=== PATIENT | male | born 1975 | race Caucasian/White ===

== ENCOUNTER 2016-09-05 12:11 | Inpatient (IN) | payer BC, OTHER ==
[~2016-09-05] VITALS: Ht 177.8 cm; Wt 81.6 kg
--- NOTE | 2016-09-05 15:25 | NUR ---
PRE ASSESSMENT: PT IS IN INTAKE A/O X4. HIS GAIT IS STEADY.BP 139/79 P 77 97.0 98% 18 . HE REPORTS DRINKING 750 ML. OF VODKA DAILY IN THIS PATTERN FOR 2 YEARS. HE STATES HE CANNOT STOP DRINKING ON HIS OWN AND HAS A HISTORY OF W/D SEIZURES. LAST SZ 2 WEEKS AGO. HE STATES HE HAS A HX OF HTN AND ANXIETY AND DEPRESSION. HE ALSO REPORTS ABUSING ADDERALL. HE TOOK ABOUT 40 MG DAILY UNTIL 10 DAYS AGO. HE STATES HAS NOT HAD ADDERALL IN 10 DAYS. WILL ASSESS PT ON UNIT.
[2016-09-05] MEDS ORDERED: MAG HYDROX/AL HYDROX/SIMETH 30 ML LIQUID UDC PO PRN (15:30)
[2016-09-05] MEDS ORDERED: diphenhydrAMINE 50 MG CAPSULE PO PRN (15:30)
[2016-09-05] MEDS ORDERED: MAGNESIUM HYDROXIDE 30 ML LIQUID UDC PO PRN (15:30)
[2016-09-05] MEDS ORDERED: ONDANSETRON 4 MG/2 ML VIAL IM PRN (15:30)
[2016-09-05] MEDS ORDERED: MIRALAX 17 GM POWD.PACK PO PRN (15:30)
[2016-09-05] MEDS ORDERED: ONDANSETRON ODT 4 MG TAB.RAPDIS SL PRN (15:30)
[2016-09-05] MEDS ORDERED: LORAZEPAM 2 MG/1 ML VIAL IM PRN (15:30)
[2016-09-05] MEDS ORDERED: LORAZEPAM 1 MG TABLET PO PRN ×2 (15:30)
[2016-09-05] MEDS ORDERED: LOPERAMIDE HCL 2 MG CAPSULE PO PRN ×2 (15:30)
[2016-09-05 15:40] VITALS: BP 139/79
[2016-09-05] MEDS ORDERED: TRAZ-144 PO (15:49)
[2016-09-05] MEDS ORDERED: FOLI1TAB16 PO (15:49)
[2016-09-05] MEDS ORDERED: METO25TA6 PO (15:50)
[2016-09-05] MEDS ORDERED: [UNRECOGNIZED DRUG - CODE] TP (15:51)
[2016-09-05] MEDS ORDERED: ESCI20TA PO (16:15)
[2016-09-05 16:20] LABS: *AMPHETAMINE, URINE NEGATIVE (NEGATIVE); *BARBITURATE, URINE NEGATIVE (NEGATIVE); *CANNABINOID, URINE NEGATIVE (NEGATIVE); *COCCAINE, URINE NEGATIVE (NEGATIVE); *OPIATE, URINE NEGATIVE (NEGATIVE); *PHENCYCLIDINE SCREEN,URINE NEGATIVE (NEGATIVE)
[2016-09-05] MEDS ORDERED: LORAZEPAM 1 MG TABLET PO ONE (16:45)
[2016-09-05] MEDS ORDERED: Medication Not On Formulary EA (Escitalopram Oxalate (Lexapro) 1 TAB) PO SCH (17:00)
[2016-09-05] MEDS ORDERED: THIAMINE HCL 200 MG/2 ML VIAL IM ONE (17:00)
[2016-09-05] MEDS: ESCITALOPRAM OXALATE 10 MG TABLET PO SCH (17:15)
--- NOTE | 2016-09-05 17:26 | NUR ---
ADMISSION: A 41 Y O MALE ADMITTED FOR MEDICALLY SUPERVISED DETOX FROM ETOH. HE STATES HE DRINKS 750 ML OF VODKA DAILY. HE REPORTS HE HAS BEEN IS THIS PATTERN DAILY FOR 2 YEARS WITH A 10 YEAR HISTORY.HE STATES HE NEEDS HELP AND CANNOT STOP DRINKING ON HIS OWN. LAST DRANK THIS AM 2 LARGE GLASSES. HE ALSO REPORTS ABUSING ADDERALL WHICH WAS PRESCRIBED BUT HAS NOT TAKEN IT SINCE August. HE WAS TAKING ABOUT 40 MG PO DAILY. HE IS A/O X 4. GAIT STEADY. SKIN WARM AND DRY. HE PRESENTS WITH SEVERE ANXIETY AND IS FIDGETY. TREMORS NOTED TO BILATERAL HANDS. HE DENIES PAIN. HE REPORTS MEDICAL HX OF HTN AND SEIZURES X 2 FROM ETOH W/D. LAST SEIZURE 2 WEEKS AGO.HE ALSO REPORTS ANXIETY AND DEPRESSION HX. HE STATES HE TAKES METOPROLOL AND LEXAPRO. HE ALSO STATES HE TAKES TRAZODONE FOR SLEEP. HE DENIES PCP. HE STATES HE LIVES WITH HIS PARTNER WHO IS ALSO DEPENDENT ON ETOH AND STATES THE RELATIONSHIP IS TOXIC. CIWA 10 . ONE TIME ATIVAN 2 MG PO GIVEN TO MANAGE S/S OF W/D PER MD. THIAMINE INJECTION ADMINISTERED. HE DENIES PCP. ORIENTED PT TO STAFF AND UNIT. ENCOURAGED INCREASED FLUIDS TO ASSIST IN FACILITATING DETOX PROCESS. WILL CONTINUE TO PROVIDE SAFE AND SUPPORTIVE ENVIRONMENT. Addendum: 09/05/16 at 1748 by WALESKA HAWK RN SEIZURE PRECAUTIONS NOTED. SIDE RAILS PADDED.
[2016-09-05 17:27] LABS: BASOPHILS # (AUTO) 0.1 K/uL (0.0-8.0); EOSINOPHILS # (AUTO) 0.2 K/uL (0.0-0.7); EOSINOPHILS % (AUTO) 2.9 % (0.0-7.0); HEMATOCRIT 39.5 % (40-50); LYMPHOCYTES # (AUTO) 1.7 K/UL (0.8-4.8); LYMPHOCYTES % (AUTO) 28.2 % (20.5-51.5); MEAN CORPUSCULAR HEMOGLOBIN 32.7 UUG (27.0-31.0); MEAN CORPUSCULAR HGB CONC 33 g/dL (32.0-37.0); MEAN CORPUSCULAR VOLUME 99.5 FL (82.0-92.0); MONOCYTES # (AUTO) 0.4 K/UL (0.1-1.30); MONOCYTES % (AUTO) 6.8 % (0.0-11.0); NEUTROPHILS # (AUTO) 3.8 K/UL (1.8-8.9); NEUTROPHILS % (AUTO) 60.1 % (38.5-71.5); PLATELET COUNT (AUTO) 309 K/UL (150-450); RED BLOOD CELL COUNT(AUTO) 3.97 MIL/UL (4.7-6.1); WHITE BLOOD COUNT (AUTO) 6.2 K/UL (4.0-11.2)
[2016-09-05 17:43] LABS: ALANINE AMINOTRANSFERASE 36 U/L (16-63); ALKALINE PHOSPHATASE 63 U/L (50-136); AMYLASE 29 U/L (25-115); ASPARTATE AMINOTRANSFERASE 20 U/L (15-37); BILIRUBIN,TOTAL 0.3 mg/dL (0.2-1.0); CARBON DIOXIDE 31 mmol/L (21-32); CHLORIDE 100 mmol/L (98-107); CREATININE 0.9 mg/dL (0.6-1.3); GLUCOSE 88 mg/dL (74-106); LIPASE 188 U/L (73-393); MAGNESIUM 1.7 mg/dL (1.8-2.4); POTASSIUM 3.6 mmol/L (3.5-5.1); TOTAL PROTEIN, SERUM 7.7 g/dL (6.4-8.2); UREA NITROGEN, BLOOD 11 mg/dL (7-18)
[2016-09-05 17:52] LABS: ETHANOL < 3 MG/DL (0-0)
[2016-09-05 17:54] LABS: THYROID STIMULATING HORMONE 5.689 mIU/mL (0.358-3.740)
--- NOTE | 2016-09-05 19:03 | NUR ---
PT LAYING IN BED WATCHING TV. HE STATES TH ATIVAN WAS EFFECTIVE. WILL PASS SHIFT REPORT TO [facility] NIGHT NURSE. Addendum: 09/05/16 at 1905 by WALESKA HAWK RN COURTNEY Prado.
[2016-09-05] MEDS ORDERED: MAGNESIUM OXIDE 400 MG TABLET PO ONE (19:45)
--- NOTE | 2016-09-05 19:45 | NUR ---
Start of Shift Note: Report received from day shift nurse. Pt is a 41 Y/O male admitted today for medically-supervised withdrawal from ETOH. Pt reported drinking 750ml vodka daily for two years. Pt is on a modified 4-day Ativan taper. Pt received with last CIWA=7, and PRN Ativan was given during day shift. Pt is a full code, reports NKDA/NKFA, and is on a regular diet. PMHx: HTN, SZ r/t ETOH withdrawal, anxiety, depression. Pt received in room and reports severe anxiety, diaphoresis, tactile disturbances, and noted with fine tremor. Bed is in low position and locked, side rails up x2, call light within reach. Will continue to monitor.
[2016-09-05 20:00] VITALS: BP 137/81
[2016-09-05] MEDS: TRAZODONE 50 MG TABLET PO SCH ×2 (20:01→21:55)
[2016-09-05] MEDS: GABAPENTIN 300 MG CAPSULE PO SCH (20:02)
[2016-09-05] MEDS: METOPROLOL TARTRATE 25 MG TABLET PO SCH (20:02)
[2016-09-05] MEDS ORDERED: LORAZEPAM 1 MG TABLET PO SCH (21:00)
[2016-09-06] VITALS: BP 94/56
--- NOTE | 2016-09-06 | NUR ---
CIWA Deferred: CIWA is deferred for sleep. V/S stable. All safety precautions are in place. Will continue to monitor. Addendum: 09/06/16 at 0009 by JOSH JACOB RN Amended: Links added.
[2016-09-06 04:00] VITALS: BP 93/58
--- NOTE | 2016-09-06 04:00 | NUR ---
CIWA Deferred: CIWA assessment is deferred for sleep. Vital signs stable. All safety precautions are in place. Will continue to monitor. Addendum: 09/06/16 at 0447 by JOSH JACOB RN Amended: Links added.
--- NOTE | 2016-09-06 06:45 | NUR ---
End of Shift Note: Pt is a 41 Y/O male admitted to [facility] on 09/05/16 for medically-supervised withdrawal from ETOH. Pt reported PMHx of HTN, SZ r/t ETOH withdrawal, anxiety, and depression. Pt is a full code. Pt reports NKDA/NKFA. Pt is on a regular diet. Pt reported drinking 750ml vodka daily for two years and was placed on a modified 4-day Ativan taper. Scheduled medication regime effectively managed s/s of withdrawal this shift, and no PRN medication were necessary. Last CIWA=10 at 20:00.V/S stable throughout shift, with tachycardia at 20:00. Total fluid intake this shift: 902 ml; output: urine x 1 and BM x 0 Pt is currently in bed and slept 8 hours this shift. All needs attended and met. Pt endorsed to day shift nurse.
--- NOTE | 2016-09-06 07:55 | NUR ---
START OF SHIFT Rcvd endorsement from ongoing nurse, client is a 47 y/o admitted for alcohol withdrawal, 4 day Ativan taper first dose today @ 0900, last CIWA 10 @ 1999 Ativan 2mg PO administered, client slept 8 hrs. Client is in bed, a/o x4. he presents with depressed mood, flat affect, he states "I don't feel good at all, my head feels really tight." Client noted with flushed face, tremors, skin warm/moist to touch, abdomen soft, nontender, quadrant x 4 active. Encourage client to increase fluid intake to facilitate detox and to attend group therapy for skills to maintain sobriety. History of withdrawal induced seizures. Client is on Seizure precautions. NKA, full code, regular diet. Call light within reach. Side rails x 2 up/padded. Will continue to monitor.
[2016-09-06] MEDS: GABAPENTIN 300 MG CAPSULE PO SCH (08:29)
[2016-09-06] MEDS: FOLIC ACID 1 MG TABLET PO SCH (08:29)
[2016-09-06] MEDS: LORAZEPAM 1 MG TABLET PO SCH ×3 (08:29→20:51)
[2016-09-06] MEDS: ESCITALOPRAM OXALATE 10 MG TABLET PO SCH (08:29)
[2016-09-06] MEDS: THIAMINE HCL 100 MG TABLET PO SCH (08:30)
[2016-09-06] MEDS: METOPROLOL TARTRATE 25 MG TABLET PO SCH ×2 (08:30→20:50)
[2016-09-06] MEDS: ACETAMINOPHEN 325 MG TABLET PO PRN (08:30)
--- NOTE | 2016-09-06 08:30 | NUR ---
TB test administered to L F/A. Client tolerated well.
--- NOTE | 2016-09-06 08:30 | NUR ---
PRN Tylenol 650mg Client reports headache 08/10, he states "It feels very tight around my head." Call light within reach. Will continue to monitor.
[2016-09-06] MEDS: MULTIVITAMINS,THERAPEUTIC TABLET PO SCH (08:31)
[2016-09-06 08:49] VITALS: BP 128/82
[2016-09-06] MEDS ORDERED: TUBERCULIN,PURIF.PROT.DERIV. 5 TU/0.1 ML TEST ID ONE (09:00)
--- NOTE | 2016-09-06 09:30 | NUR ---
Reassessment PRN Tylenol 650mg Client reports some relief from his headache 04/12, but tolerable. Encourage to increase fluid intake as tolerated. Call light within reach. Will continue to monitor.
--- NOTE | 2016-09-06 10:52 | NUR ---
Therapist prompted client about group times. Client stated he will attend all groups.
[2016-09-06 12:55] VITALS: BP 129/78
[2016-09-06] MEDS: GABAPENTIN 400 MG CAPSULE PO SCH ×2 (14:23→20:50)
[2016-09-06] MEDS: IBUPROFEN 400 MG TABLET PO PRN (15:19)
[2016-09-06 16:55] VITALS: BP 148/93
[2016-09-06] MEDS: DICYCLOMINE HCL 20 MG TABLET PO PRN (17:19)
[2016-09-06] MEDS: BACLOFEN 20 MG TABLET PO PRN (17:19)
[2016-09-06] MEDS: CLONIDINE HCL 0.1 MG TABLET PO PRN (17:19)
--- NOTE | 2016-09-06 17:19 | NUR ---
PRN Clonidine 0.1mg, Baclofen 20mg, Bentyl 20mg, Maalox 30mL Client reports irritability, cold/chills, anxiety, lower extremities with muscle spasms, abdominal spasms and heartburn Call light within reach. Will continue to monitor.
--- NOTE | 2016-09-06 18:19 | NUR ---
Reassessment PRN Clonidine 0.1mg, Baclofen 20mg, Bentyl 20mg, Maalox 30mL Client reports some relief from irritability, cold/chills and anxiety. He reports feeling better from the muscle spasms and relief from heartburn. Above medications effective. Call light within reach. Will continue to monitor.
--- NOTE | 2016-09-06 18:28 | NUR ---
END OF SHIFT Will endorse client to incoming nurse, client continues 4 out of 5 day Ativan taper for alcohol withdrawal, tolerating well. Last CIWA 8 @ 1700. Client presents with anxious mood, flat affect and fatigue. PRN Tylenol and Motrin for OSEGUERA, Clonidine, for irritability, chills, Vistaril for Anxiety, Bentyl for abdominal spasm and Maalox for heartburn, noted effective. Client was compliant with 2/3 of group therapy. Adequate intake 2700mL, void x 5, stool x 2. Client is fully ambulatory. Call light within reach. Safety measures rendered and all needs me
--- NOTE | 2016-09-06 19:10 | NUR ---
Start of shift note Received report from day shift nurse. Pt is a 41 yo male, A+Ox4, presenting to [facility] for ETOH dependence. Pt has NKA, is on full code status, and on Regular diet. Pt is on Fall and Seizure precautions. Pt has HX of HTN, Seizure, Anxiety, and Depression. Pt is on 4 day Ativan taper, tolerated well. No s/s of distress noted at this time. Respirations even and unlabored. Will continue to monitor.
[2016-09-06 20:15] VITALS: BP 119/83
[2016-09-06] MEDS: TRAZODONE 50 MG TABLET PO SCH (20:50)
[2016-09-07] VITALS (7 sets, daily range): BP systolic 113–137; BP diastolic 73–90
[2016-09-07 05:06] LABS: HEPATITIS B SURFACE AG Negative (Negative)
--- NOTE | 2016-09-07 06:52 | NUR ---
End of shift note Pt is a 41 yo male, A+Ox4, presenting to [facility] for ETOH dependence. Pt has NKA, is on full code status, and on Regular diet. Pt is on Fall and Seizure precautions. Pt has HX of HTN, Seizure, Anxiety, and Depression. Pt is on 4 day Ativan taper, tolerated well. Pt slept for a total of 8 HRS. Last CIWA: 2 @0400. No s/s of distress noted at this time. Respirations even and unlabored. Will endorse to day shift nurse.
--- NOTE | 2016-09-07 07:56 | NUR ---
START OF SHIFT Rcvd endorsement from ongoing nurse, client is a 47 y/o admitted for alcohol withdrawal, 3rd of 4 day Ativan taper, tolerating well, last CIWA 2 @ 0400. Client had an uneventful night, he slept 8hrs. Client is in bed, a/o x4. he presents with anxious mood, flat affect, he states "I am sweating, my legs are tingling and I have tremors." Client noted with flushed face, fine tremors, skin warm/moist to touch, abdomen soft, nontender, quadrant x 4 active. Encourage client to increase fluid intake to facilitate detox and to attend group therapy for skills to maintain sobriety. History of withdrawal induced seizures. Client is on Seizure precautions. NKA, full code, regular diet. Call light within reach. Side rails x 2 up/padded. Will continue to monitor.
[2016-09-07] MEDS: ESCITALOPRAM OXALATE 10 MG TABLET PO SCH (08:21)
[2016-09-07] MEDS: LORAZEPAM 1 MG TABLET PO SCH ×4 (08:22→20:42)
[2016-09-07] MEDS: THIAMINE HCL 100 MG TABLET PO SCH (08:22)
[2016-09-07] MEDS: MULTIVITAMINS,THERAPEUTIC TABLET PO SCH (08:22)
[2016-09-07] MEDS: METOPROLOL TARTRATE 25 MG TABLET PO SCH ×2 (08:22→20:43)
[2016-09-07] MEDS: GABAPENTIN 400 MG CAPSULE PO SCH ×3 (08:22→20:42)
[2016-09-07] MEDS: FOLIC ACID 1 MG TABLET PO SCH (08:22)
[2016-09-07 08:26] LABS: THYROID STIMULATING HORMONE 3.284 mIU/mL (0.358-3.740)
[2016-09-07 08:42] LABS: MAGNESIUM 2.1 mg/dL (1.8-2.4); POTASSIUM 3.8 mmol/L (3.5-5.1)
--- NOTE | 2016-09-07 10:00 | NUR ---
Dr. Kenney notified of lab values TIBC 218 % Saturation 49 Carbon Dioxide 33 Vitamin B12 1110 NNO at this time, will f-up.
--- NOTE | 2016-09-07 15:27 | NUR ---
NO MRSA ISOLATED
[2016-09-07] MEDS: CLONIDINE HCL 0.1 MG TABLET PO PRN (18:50)
[2016-09-07] MEDS: DICYCLOMINE HCL 20 MG TABLET PO PRN (18:50)
[2016-09-07] MEDS: BACLOFEN 20 MG TABLET PO PRN (18:50)
--- NOTE | 2016-09-07 18:50 | NUR ---
PRN Clonidine 0.1mg, Baclofen 20mg, Bentyl 20mg, Client reports irritability, cold/chills, anxiety, lower extremities with muscle spasms, abdominal spasms. Call light within reach. Will continue to monitor.
--- NOTE | 2016-09-07 19:10 | NUR ---
END OF SHIFT Will endorse client to incoming nurse, client continues 2nd of 4 day Ativan taper for alcohol withdrawal, tolerating well. Last CIWA 5 @ 1700. Client presents with depressed mood, flat affect and restless legs. PRN Clonidine 0.1mg, Baclofen 20mg, Bentyl 20mg, for irritability, cold/chills, anxiety, lower extremities with muscle spasms, and abdominal spasms, incoming nurse to reassess. Call light within reach. Will continue to monitor. No MRSA isolated. Client was compliant with group therapy. Adequate intake 3000mL, void x 6, stool x 2. Client is fully ambulatory. Call light within reach. Safety measures rendered and all needs met.
--- NOTE | 2016-09-07 19:30 | NUR ---
START OF SHIFT Pt is a 41 y/o male admitted on 09/05/16 for alcohol dependency.Pt is A/O X 4,NKA,on a regular diet,full code status.Pt has PMH of Anxiety,Depression,HTN and Etoh withdrawal seizures,last one was 2 weeks ago.Pt is on fall and seizure precautions.Placed on 4 day Ativan taper,today is day 2,well tolerated.No A/R noted.Pt is compliant with medications and treatment plan.Pt received resting in bed,reading,c/o mild anxiety and general body ache. Last CIWA was 5.Bed is in low position and locked, side rails up x2, call light within reach. Will medicate per orders and continue to monitor for safety. Addendum: 09/08/16 at 0727 by HAYDER HICKEY RN PRN MEDS GIVEN BY DAY SHIFT WERE EFFECTIVE.PT VERBALIZED A DECREASE IN SYMPTOMS.WILL CONTINUE TO MONITOR.
[2016-09-07] MEDS: IBUPROFEN 400 MG TABLET PO PRN (20:42)
[2016-09-07] MEDS: TRAZODONE 50 MG TABLET PO SCH (20:42)
--- NOTE | 2016-09-07 20:45 | NUR ---
PRN MOTRIN GIVEN ORDERED FOR C/O GENERAL BODYACHE AND MILD HEADACHE.PAIN LEVEL IS 5/10.WILL MONITOR FOR EFFECTIVENESS.
--- NOTE | 2016-09-07 21:45 | NUR ---
PRN F/U PRN MOTRIN IS EFFECTIVE.PT VERBALIZES FEELING BETTER.PAIN LEVEL IS 1/10.
[2016-09-08] VITALS: BP 113/76
--- NOTE | 2016-09-08 04:00 | NUR ---
V/S Refused,CIWA Deferred: Pt did not want to be woken up for V/S if sleeping. He is in deep sleep.Breathing even and non labored.CIWA assessment is deferred for sleep. All safety precautions are in place. Will continue to monitor.
--- NOTE | 2016-09-08 06:35 | NUR ---
END OF SHIFT-- Pt is a 41 y/o male admitted on 09/05/16 for alcohol dependency.Pt is A/O X 4,NKA,on a regular diet,full code status.Pt has PMH of Anxiety,Depression,HTN and Etoh withdrawal seizures,last one was 2 weeks ago.Pt is on fall and seizure precautions.Placed on 4 day Ativan taper,today is day 3,well tolerated.No A/R noted.Pt is compliant with medications and treatment plan.PRN Motrin given for general body ache and it was effective.Last CIWA was 2 at midnight.Pt slept 7 hrs,fluid intake was 1890 ; voided x 3 .Bed is in low position and locked, side rails up x2, call light within reach. Will medicate per orders and continue to monitor for safety.
--- NOTE | 2016-09-08 07:50 | NUR ---
START OF SHIFT Rcvd endorsement from ongoing nurse, client is a 41 y/o admitted for alcohol withdrawal, 3rd of 4 day Ativan taper, tolerating well, last CIWA 2 @ 2400. PRN Motrin for body aches, noted effective. Client slept 7 hrs. Client is in bed, a/o x4. he presents with anxious mood, flat affect, he states "I am sweating, my legs are tingling and I have tremors." Client noted with flushed face, fine tremors, skin warm/moist to touch, abdomen soft, nontender, quadrant x 4 active. Encourage client to increase fluid intake to facilitate detox and to attend group therapy for skills to maintain sobriety. History of withdrawal induced seizures. Client is on Seizure precautions. NKA, full code, regular diet. Call light within reach. Side rails x 2 up/padded. Will continue to monitor.
[2016-09-08 08:08] VITALS: BP 112/83
[2016-09-08] MEDS: ESCITALOPRAM OXALATE 10 MG TABLET PO SCH (08:23)
[2016-09-08] MEDS: LORAZEPAM 1 MG TABLET PO SCH ×3 (08:23→20:22)
[2016-09-08] MEDS: FOLIC ACID 1 MG TABLET PO SCH (08:24)
[2016-09-08] MEDS: METOPROLOL TARTRATE 25 MG TABLET PO SCH ×2 (08:24→20:22)
[2016-09-08] MEDS: THIAMINE HCL 100 MG TABLET PO SCH (08:24)
[2016-09-08] MEDS: MULTIVITAMINS,THERAPEUTIC TABLET PO SCH (08:24)
[2016-09-08] MEDS: GABAPENTIN 400 MG CAPSULE PO SCH ×3 (08:24→20:22)
--- NOTE | 2016-09-08 08:30 | NUR ---
Zero induration noted at L F/A TB site.
[2016-09-08 12:00] VITALS: BP 129/86
[2016-09-08 16:55] VITALS: BP 135/85
[2016-09-08] MEDS: CLONIDINE HCL 0.1 MG TABLET PO PRN (17:29)
[2016-09-08] MEDS: DICYCLOMINE HCL 20 MG TABLET PO PRN (17:29)
[2016-09-08] MEDS: BACLOFEN 20 MG TABLET PO PRN (17:29)
--- NOTE | 2016-09-08 18:29 | NUR ---
Reassessment PRN Clonidine 0.1mg, Baclofen 20mg, Bentyl 20mg. Client reports some relief from irritability, cold/chills and anxiety. He reports feeling better from the muscle spasms. Above medications effective. Call light within reach. Will continue to monitor.
--- NOTE | 2016-09-08 18:45 | NUR ---
END OF SHIFT Will endorse client to incoming nurse, client continues 3rd of 4 day Ativan taper for alcohol withdrawal, tolerating well. Last CIWA 6 @ 1700. Client presents with depressed mood, flat affect, he reports fatigue. PRN Clonidine 0.1mg, Baclofen 20mg, Bentyl 20mg, for irritability, cold/chills, anxiety, lower extremities with muscle spasms, and abdominal spasms, noted effective. Call light within reach. Will continue to monitor. Client was compliant with group therapy. Adequate intake 2466mL, void x 4, stool x 1. Client is fully ambulatory. Call light within reach. Safety measures rendered and all needs met.
[2016-09-08 20:00] VITALS: BP 145/71
--- NOTE | 2016-09-08 20:00 | NUR ---
START OF SHIFT NOTE PATIENT ALERT AND ORIENTED X 4. RESPIRATION EVEN AND UNLABORED. PATIENT REPORTS ANXIETY AND TREMORS OBSERVED. PATIENT C/O GENERALIZED PAIN /. NO N/V. RECEIVED REPORT FROM DAY SHIFT NURSE. PATIENT IS A 41 YEAR OLD MALE, ADMITTED FOR ETOH DEPENDENCE. PATIENT IS ON 4 DAY ATIVAN TAPER. PATIENT IS FULL CODE, REGULAR DIET AND NO KNOWN ALLERGY. UPON ADMISSION, PATIENT REPORTED DRINKING VODKA 750 ML LITERS DAILY FOR 2 YEARS AND ADDERALL 40 MG DAILY, HE STOPPED USING O 08/29/16. PATIENT REPORTS PMH OF HYPERTENSION, SEIZURES R/T ETOH W/D X 2 LAST 2 WEEKS AGO, ANXIETY AND DEPRESSION. PATIENT IS ON FALL/SEIZURE PRECAUTION. SKIN INTACT. PATIENT WAS GIVEN PRN CLONIDINE, BENTYL AND BACLOFEN. LAST CIWA 6. SAFETY MEASURES IN PLACE. CALL LIGHT IN REACH. WILL CONTINUE TO MONITOR.
[2016-09-08] MEDS: TRAZODONE 50 MG TABLET PO SCH (20:22)
[2016-09-08] MEDS: IBUPROFEN 400 MG TABLET PO PRN (20:23)
--- NOTE | 2016-09-08 20:23 | NUR ---
PRN MOTRIN ADMINISTRATION PATIENT C/O GENERALIZED BODY ACHES 07/10 . PRN MOTRIN GIVEN. WILL MONITOR FOR EFFECTIVENESS
--- NOTE | 2016-09-08 21:23 | NUR ---
PRN MOTRIN RE-ASSESSMENT PATIENT STATES MOTRIN IS HELPFUL. PAIN LEVEL 1/10. WILL CONTINUE TO MONITOR.
[2016-09-09] VITALS: BP 89/57
[2016-09-09 04:00] VITALS: BP 125/71
--- NOTE | 2016-09-09 07:13 | NUR ---
END OF SHIFT NOTE PATIENT REMAIN ALERT AND ORIENTED X 4. RESPIRATION EVEN AND UNLABORED. PATIENT REPORTS ANXIETY AND TREMORS OBSERVED. PATIENT C/O GENERALIZED PAIN 07/10. NO N/V DURING SHIFT. PATIENT IS A 41 YEAR OLD MALE, ADMITTED FOR ETOH DEPENDENCE. PATIENT IS ON 4 DAY ATIVAN TAPER. PATIET IS FULL CODE, REGULAR DIET AND NO KNOWN ALLERGY. UPON ADMISSION, PATIENT REPORTED DRINKING VODKA 750 ML LITERS DAILY FOR 2 YEARS AND ADDERALL 40 MG DAILY, HE STOPPED USING O 08/29/16. PATIENT REPORTS PMH OF HYPERTENSION, SEIZURES R/T ETOH W/D X 2 LAST 2 WEEKS AGO, ANXIETY AND DEPRESSION. PATIENT IS ON FALL/SEIZURE PRECAUTION. SKIN INTACT. PATIENT WAS GIVEN MOTRIN AT . LAST CIWA 2. SAFETY MEASURES IN PLACE. CALL LIGHT IN REACH. WILL CONTINUE TO MONITOR. SLEPT 6 HOURS. FLUID INTAKE 1,400 ML. VOIDED X 4. NO BM. PATIENT COMPLIANT WITH MEDS AND TREATMENT PLAN. ATTENDED GROUPS. EATING AND DRINKING WELL.
--- NOTE | 2016-09-09 07:30 | NUR ---
start of shift note: received pt from shift nurse manager nurse, pt is in stable condition at this time, pt is admitted to [facility] for ETOH withdrawal/dependence. pt is on a 4 day ativan taper and tolerating well no A/R noted. will monitor pt for any changes and will continue to encourage pt to join groups and activities
[2016-09-09] MEDS: METOPROLOL TARTRATE 25 MG TABLET PO SCH ×2 (08:28→20:22)
[2016-09-09] MEDS: ESCITALOPRAM OXALATE 10 MG TABLET PO SCH (08:28)
[2016-09-09] MEDS: GABAPENTIN 400 MG CAPSULE PO SCH ×3 (08:28→20:19)
[2016-09-09] MEDS: LORAZEPAM 1 MG TABLET PO SCH ×2 (08:28→20:19)
[2016-09-09] MEDS: FOLIC ACID 1 MG TABLET PO SCH (08:28)
[2016-09-09] MEDS: THIAMINE HCL 100 MG TABLET PO SCH (08:28)
[2016-09-09] MEDS: MULTIVITAMINS,THERAPEUTIC TABLET PO SCH (08:28)
[2016-09-09 08:52] VITALS: BP 129/92
[2016-09-09 12:34] VITALS: BP 127/93
[2016-09-09] MEDS: CLONIDINE HCL 0.1 MG TABLET PO PRN (14:07)
[2016-09-09] MEDS: HYDROXYZINE PAMOATE 25 MG CAPSULE PO PRN (14:07)
--- NOTE | 2016-09-09 14:15 | NUR ---
PRN ADMINISTRATION: PT WITH COMPLAINTS OF ANXIETY R/T DECISION MAKING ON DISCHARGE OPTIONS AND LOCATIONS, PT APPEARED TREMULOUS AND FLUSHED. WILL RE-ASSESS PT FOR EFFECTIVENESS OF MEDICATIONS
--- NOTE | 2016-09-09 15:00 | NUR ---
PRN RE-ASSESSMENT:PT VERBALIZED THAT HE IS LESS ANXIOUS, BUT IS STILL WORRYING ABOUT DISCHARGING AND OUTSIDE ISSUES.
[2016-09-09 17:09] VITALS: BP 138/100
--- NOTE | 2016-09-09 18:50 | NUR ---
END OF SHIFT NOTE: PT IS IN STABLE CONDITION AT THIS TIME. PT IS SOMEWHAT FIXATED ON WANTING TO DISCHARGE TOMORROW D/T ISSUES OUTSIDE OF DETOX. EXPLAINED TO PT MULTIPLE TIMES PROTOCOL AND WHAT MD AND DISCHARGE PLANNERS SUGGEST FOR MORE SUCCESSFUL CHANCE OF SOBRIETY. PT IS RE-DIRECTABLE. PT AGREED TO COMPLETING TREATMENT. PTS LAST CIWA 5. PT WITHOUT A/R TO TAPER MEDICATIONS. WILL ENDORSE PT TO REINSPECTOR NURSE.
[2016-09-09 20:00] VITALS: BP 132/88
--- NOTE | 2016-09-09 20:00 | NUR ---
START OF SHIFT NOTE RECEIVED REPORT FROM DAY SHIFT NURSE. PATIENT IS A 41 YEAR OLD MALE, ADMITTED FOR ETOH DEPENDENCE. PATIENT IS ON THE 4TH DAY OF HIS 4 DAY ATIVAN TAPER. PATIENT IS FULL CODE, REGULAR DIET AND NO KNOWN ALLERGY. UPON ADMISSION, PATIENT REPORTED DRINKING VODKA 750 ML LITERS DAILY FOR 2 YEARS AND ADDERALL 40 MG DAILY, HE STOPPED USING ON 08/29/16. PATIENT REPORTS PMH OF HYPERTENSION, SEIZURES R/T ETOH W/D X 2 LAST 2 WEEKS AGO, ANXIETY AND DEPRESSION. PATIENT IS ON FALL/SEIZURE PRECAUTION. SKIN INTACT. PATIENT WAS GIVEN PRN VISTARIL AND CLONIDINE. LAST CIWA 5. PATIENT ALERT AND ORIENTED X 4. RESPIRATION EVEN AND UNLABORED. PATIENT ANXIOUS, C/O HEADACHE /. NO N/V. PATIENT ATTENDED GROUPS. SAFETY MEASURES IN PLACE. CALL LIGHT IN REACH. WILL CONTINUE TO MONITOR.
[2016-09-09] MEDS: ACETAMINOPHEN 325 MG TABLET PO PRN (20:19)
[2016-09-09] MEDS: TRAZODONE 50 MG TABLET PO SCH (20:19)
--- NOTE | 2016-09-09 20:19 | NUR ---
PRN TYLENOL ADMINISTRATION PATIENT C/O HEADACHE 07/10. PRN TYLENOL GIVEN. WILL MONITOR FOR EFFECTIVENESS
--- NOTE | 2016-09-09 21:19 | NUR ---
PRN TYLENOL RE-ASSESSMENT PATIENT STATES TYLENOL HELPFUL. PAIN LEVEL 2/10 AT THIS TIME, TOLERABLE. WILL CONTINUE TO MONITOR
--- NOTE | 2016-09-10 | NUR ---
CIWA/VS PATIENT ASLEEP. CIWA UNABLE TO ASSESS. RESPIRATION EVEN AND UNLABORED. RR. 14. SAFETY MEASURES IN PLACE. CALL LIGHT IN REACH. WILL CONTINUE TO MONITOR
--- NOTE | 2016-09-10 04:00 | NUR ---
CIWA/VS PATIENT ASLEEP. CIWA UNABLE TO ASSESS. RESPIRATION EVEN AND UNLABORED. RR. 15. SAFETY MEASURES IN PLACE. CALL LIGHT IN REACH. WILL CONTINUE TO MONITOR
--- NOTE | 2016-09-10 07:11 | NUR ---
END OF SHIFT NOTE MONITORED PATIENT THROUGHOUT SHIFT .PATIENT IS A 51 YEAR OLD FEMALE ADMITED ON 09/09/16 FOR ETOH DEPENDENCE. PATIENT WAS PLACED ON 5 DAY ATIVAN TAPER, STARTED TODAY,. TOLERATED WELL, NO ADVERSE REACTION. PATIENT IS FULL CODE, REGULAR DIET AND WITH SEASONAL ALLERGY. UPON ADMISSION, PATIENT REPORTED DRINKING WHITE WINE 1.5 LITERS SINCE August. PATIENT REPORTS PMH OF ANXIETY, DEPRESSION, UTI, ANXIETY, , BULIMIA AND SZ-LAST ONE WAS 1993 D/T EATING D/O OR ALCOHOL. ON FALL/SEIZURE PRECAUTION. PATIENT C/O ANXIETY AND SWEATING. NO N/V DURING SHIFT. PATIENT STAYS IN HER ROOM MOST OF THE SHIFT. PATIENT COMPLIANT WITH MEDICATIONS. ENCOURAGED TO ATTEND AND PARTICIPATES IN GROUPS. PATIENT DID NOT REQUIRE ANY PRN MEDICATIONS. LAST CIWA 2 . SAFETY MEASURES IN PLACE. CALL LIGHT IN REACH. WILL CONTINUE TO MONITOR. SLEPT 10 HOURS. FLUID INTAKE 1,855 ML. VOIDED X 2 . NO BM. Addendum: 09/10/16 at 0717 by HAYLEE WALLACE LVN ERROR: THIS CHARTING IS FOR ANOTHER PATIENT
--- NOTE | 2016-09-10 07:17 | NUR ---
END OF SHIFT NOTE MONITORED PATIENT THROUGHOUT THE SHIFT. PATIENT COMPLIANT WITH MEDICATIONS AND TREATMENT PLAN. PATIENT IS A 41 YEAR OLD MALE, ADMITTED FOR ETOH DEPENDENCE. PATIENT IS ON THE 4TH DAY OF HIS 4 DAY ATIVAN TAPER, TOLERATED WELL. NO ADVERSE REACTION . PATIENT IS FULL CODE, REGULAR DIET AND NO KNOWN ALLERGY. UPON ADMISSION, PATIENT REPORTED DRINKING VODKA 750 ML LITERS DAILY FOR 2 YEARS AND ADDERALL 40 MG DAILY, HE STOPPED USING ON 08/29/16. PATIENT REPORTS PMH OF HYPERTENSION, SEIZURES R/T ETOH W/D X 2 LAST 2 WEEKS AGO, ANXIETY AND DEPRESSION. PATIENT IS ON FALL/SEIZURE PRECAUTION. SKIN INTACT. PATIENT ALERT AND ORIENTED X 4. RESPIRATION EVEN AND UNLABORED. PATIENT ANXIOUS, C/O HEADACHE /. NO N/V DURING SHIFT. PATIENT ATTENDED GROUPS. PATIENT WAS GIVEN PRN TYLENOL. LAST CIWA 4 . SAFETY MEASURES IN PLACE. CALL LIGHT IN REACH. WILL CONTINUE TO MONITOR. SLEPT 7 HOURS. FLUID INTAKE 1,095 ML. VOIDED X 2. NO BM.
--- NOTE | 2016-09-10 07:20 | NUR ---
Start of Shift Notes: Received patient in his room. Alert and oriented x 4. Verbally responsive. Able to make his needs known. Respirations even and unlabored. No SOB noted. Skin warm and dry to touch. Abdomen soft and non-distended with (+) BS in all 4 quadrants. No complains of N/V/D or constipation noted. No complains of abdominal discomfort noted. Bladder non-distended. Denies dysuria. Voids independently. Ambulatory ad sherice with steady gait. Patient is a 41 year old male admitted for ETOH dependence who was placed on a 4-day Ativan taper as ordered. No adverse reactions noted. Has past medical hx of seizures, HTN and anxiety, depression. Educated patient on his current plan of care for the day and his medication regimen. Encouraged oral fluid intake and encouraged group participation to learn new skills to prevent relapse. NKA. FULL CODE. Regular diet. Slept for 7 hours. Last CIWA 4. Will continue to monitor closely.
[2016-09-10 08:00] VITALS: BP 112/74
[2016-09-10] MEDS: IBUPROFEN 400 MG TABLET PO PRN (08:28)
[2016-09-10] MEDS: MULTIVITAMINS,THERAPEUTIC TABLET PO SCH (08:28)
[2016-09-10] MEDS: METOPROLOL TARTRATE 25 MG TABLET PO SCH ×2 (08:28→20:32)
[2016-09-10] MEDS: THIAMINE HCL 100 MG TABLET PO SCH (08:28)
[2016-09-10] MEDS: ESCITALOPRAM OXALATE 10 MG TABLET PO SCH (08:28)
[2016-09-10] MEDS: GABAPENTIN 400 MG CAPSULE PO SCH ×3 (08:28→20:32)
[2016-09-10] MEDS: FOLIC ACID 1 MG TABLET PO SCH (08:28)
--- NOTE | 2016-09-10 08:28 | NUR ---
Motrin 400 mg PO as ordered: Patient complains of mild headache 06/10. Relaxation techniques provided. Medicated patient with Motrin 400 mg PO as ordered. Will monitor for effectiveness.
--- NOTE | 2016-09-10 09:28 | NUR ---
Re-assessment: Per patient, PRN Motrin was effective in relieving headache. PL 0/10.
[2016-09-10] MEDS ORDERED: GABA-536 PO (11:29)
[2016-09-10] MEDS ORDERED: HYDR-3895 PO (11:29)
[2016-09-10] MEDS ORDERED: DIPH50CA37 PO (11:29)
[2016-09-10] MEDS: CLONIDINE HCL 0.1 MG TABLET PO PRN (11:30)
[2016-09-10] MEDS: HYDROXYZINE PAMOATE 25 MG CAPSULE PO PRN ×2 (11:30→18:09)
--- NOTE | 2016-09-10 11:31 | NUR ---
Clonidine 0.1mg PO and Vistaril 25 mg PO as ordered: Patient noted with agitation, anxiety due to his discharge process and everything going on outside of home. Reassurance was provided with no help. Medicated patient with Vistaril 25 mg PO and Clonidine 0.1mg PO as ordered. Will monitor for effectiveness.
[2016-09-10 12:00] VITALS: BP 128/76
--- NOTE | 2016-09-10 12:31 | NUR ---
Re-assessment: Per patient, PRN Clonidine and Vistaril were effective in reducing patient's anxiety.
[2016-09-10 12:49] LABS: *AMPHETAMINE, URINE NEGATIVE (NEGATIVE); *BARBITURATE, URINE NEGATIVE (NEGATIVE); *CANNABINOID, URINE NEGATIVE (NEGATIVE); *COCCAINE, URINE NEGATIVE (NEGATIVE); *OPIATE, URINE NEGATIVE (NEGATIVE); *PHENCYCLIDINE SCREEN,URINE NEGATIVE (NEGATIVE)
[2016-09-10 16:00] VITALS: BP 128/79
--- NOTE | 2016-09-10 18:09 | NUR ---
Vistaril 25 mg PO given: Patient noted with complain of anxiety. Anxious about discharge. Multiple reassurance provided. Medicated patient with Vistaril 25 mg PO as ordered. Will monitor for effectiveness.
--- NOTE | 2016-09-10 18:51 | NUR ---
End of Shift Notes: Patient completed his 4-day Ativan taper as ordered. No delayed reactions noted. Placed on 4-day Ativan taper for ETOH withdrawal. Tolerated well. Prior to admission, patient was using 750cc of Vodka daily x 2 years. VS monitored closely due to HTN. No s/s of hypo/HTN noted. No significant abnormalities on the patient's VS noted. On Lopressor for HTN. Tolerated well. Denies any chest pain or discomfort. No complains of headache or dizziness. Withdrawal symptoms were closely monitored. Initial CIWA 5 - patient presented with anxiety, sweats, fine tremors and mild headache. Medicated patient with Motrin at 0828 for headache with help after 1 hour. Noted patient with complains of anxiety and agitation due to the discharge process. Redirection provided. Medicated patient with Clonidine and Vistaril at 1130 with help after 1 hour. Noted patient with complains of anxiety at 1806. Medicated patient with Vistaril 25 mg PO as ordered. Per patient, Ativan has been helping him with his withdrawal symptoms. Last CIWA 2. Compliant with care and treatment. Patient with discharge plans tomorrow. UDS in and resulted. Appears motivated to sobriety. Safety precautions in place. All needs met and attended. Will continue to monitor closely.
--- NOTE | 2016-09-10 19:09 | NUR ---
Re-assessment: Patient verbalizes relief from Vistaril. Continue to monitor and provide support.
--- NOTE | 2016-09-10 19:11 | NUR ---
Start of shift note Received report from day shift nurse. Pt is a 41 yo male, A+Ox4, presenting to [facility] for ETOH dependence. Pt has NKA, is on full code status, and on Regular diet. Pt is on Fall and Seizure precautions. Pt has HX of HTN, Seizure, Anxiety, and Depression. Pt has completed 4 day Ativan taper, tolerated well, and is due for discharge. No s/s of distress noted at this time. Respirations even and unlabored. Will continue to monitor.
[2016-09-10 20:12] VITALS: BP 130/94
[2016-09-10] MEDS: ACETAMINOPHEN 325 MG TABLET PO PRN (20:32)
[2016-09-10] MEDS: TRAZODONE 50 MG TABLET PO SCH (20:32)
--- NOTE | 2016-09-10 20:32 | NUR ---
PRN Tylenol PT c/o general body pain 10 and requested for PRN Tylenol. Medication given and tolerated well. Will reassess within 1 HR. Will continue to monitor.
--- NOTE | 2016-09-10 21:28 | NUR ---
PRN Tylenol Reassessment Medication effective. Pt expresses reduction in pain. No s/s of ASE/distress noted at this time. Respirations even and unlabored. Will continue to monitor.
[2016-09-11 00:11] VITALS: BP 125/88
[2016-09-11 04:35] VITALS: BP 128/87
--- NOTE | 2016-09-11 07:00 | NUR ---
End of shift note Pt is a 41 yo male, A+Ox4, presenting to [facility] for ETOH dependence. Pt has NKA, is on full code status, and on Regular diet. Pt is on Fall and Seizure precautions. Pt has HX of HTN, Seizure, Anxiety, and Depression. Pt has completed 4 day Ativan taper, tolerated well, and is due for discharge today. Pt was given PRN Tylenol @2031. Pt slept for a total of 8 HRS. Last CIWA: 1 @0400. No s/s of distress noted at this time. Respirations even and unlabored. Will endorse to day shift nurse.
--- NOTE | 2016-09-11 07:02 | NUR ---
Start of Shift Notes: Received patient in his room. Alert and oriented x 4. Verbally responsive. Able to make his needs known. Respirations even and unlabored. No SOB noted. Skin warm and dry to touch. Abdomen soft and non-distended with (+) BS in all 4 quadrants. No complains of N/V/D or constipation noted. No complains of abdominal discomfort noted. Bladder non-distended. Denies dysuria. Voids independently. Ambulatory ad sherice with steady gait. Patient is a 41 year old male admitted for ETOH dependence who was placed on a 4-day Ativan taper as ordered. No adverse reactions noted. Completed taper. Has past medical hx of seizures, HTN and anxiety, depression. Educated patient on his current plan of care for the day and his medication regimen. Patient will be discharging today. Educated patient on the discharge process. Patient verbalized good understanding. Will continue to monitor closely.
--- NOTE | 2016-09-11 08:00 | NUR ---
Discharge Instructions: Patient education provided regarding his discharge instructions. Patient verbalized good understanding of all teachings. All clothings, medications and valuables were returned to the patient. Patient denies any s/s of withdrawal noted. All necessary paperwork were placed inside the duffel bag. Will continue to monitor and awaiting for patient to be picked by [facility] to be transported to [facility].
[2016-09-11] MEDS: ESCITALOPRAM OXALATE 10 MG TABLET PO SCH (08:12)
[2016-09-11] MEDS: GABAPENTIN 400 MG CAPSULE PO SCH (08:12)
[2016-09-11] MEDS: THIAMINE HCL 100 MG TABLET PO SCH (08:12)
[2016-09-11] MEDS: MULTIVITAMINS,THERAPEUTIC TABLET PO SCH (08:12)
[2016-09-11 08:13] VITALS: BP 130/87
[2016-09-11] MEDS: METOPROLOL TARTRATE 25 MG TABLET PO SCH (08:13)
[2016-09-11] MEDS: FOLIC ACID 1 MG TABLET PO SCH (08:13)
--- NOTE | 2016-09-11 09:20 | NUR ---
Discharged: Patient left the unit and escorted off the unit at this time in stable condition. VSS. No s/s of withdrawal noted. CIWA 0. Picked up by [facility] to be transported to [facility].
== END 2016-09-11 09:20 | disposition other institution (70) | DRG 895 ==
LOC: SRC 14:49
PROVIDERS: ADMIT Internal Medicine; ATTEND Internal Medicine
PROC: HZ2ZZZZ Detoxification Services for Substance Abuse Treatment (ICD-10-PCS; principal; 2016-09-05)
PROC: HZ41ZZZ Group Counseling for Substance Abuse Treatment, Behavioral (ICD-10-PCS; 2016-09-06)
PROC: HZ31ZZZ Individual Counseling for Substance Abuse Treatment, Behavioral (ICD-10-PCS; 2016-09-06)
DX: F10.230 Alcohol dependence with withdrawal, uncomplicated (principal); E87.3 Alkalosis; Y90.9 Presence of alcohol in blood, level not specified; F41.9 Anxiety disorder, unspecified; G47.00 Insomnia, unspecified; I10 Essential (primary) hypertension; Z81.1 Family history of alcohol abuse and dependence; Z82.49 Family history of ischemic heart disease and other diseases of the circulatory system; Z80.42 Family history of malignant neoplasm of prostate; F17.210 Nicotine dependence, cigarettes, uncomplicated; F32.9 Major depressive disorder, single episode, unspecified; E83.42 Hypomagnesemia; E86.0 Dehydration; E07.81 Sick-euthyroid syndrome; D53.9 Nutritional anemia, unspecified
CPT/HCPCS: 36415; 70030-TC; 80307; 80346; 82746; 83550; 83690; 83735; 84443; 85025; 86580; 86592; 86705; 86803; 87340; 87806; G0480; J3411